=== PATIENT | male | born 1985 | race Caucasian/White ===

== ENCOUNTER 2024-09-06 06:06 | Emergency (ER) | payer BC, SELFPAY ==
[2024-09-06 06:12] VITALS: BP 137/77
[2024-09-06 06:15] VITALS: BP 102/60
[2024-09-06] MEDS: TORADOL 30 MG IM (06:19)
[2024-09-06 06:35] LABS: Hematocrit 43.3 % (39.0-52.0); Hemoglobin 14.3 g/dL (13.0-18.0); Mean Corpuscular Volume 84.9 fL (80.0-94.0); Platelet Count 244 10^3/uL (130-400); Red Cell Dist. Width 13.1 % (11.5-14.5); White Blood Cell Count 8.4 10^3/uL (4.8-10.8)
[2024-09-06 06:58] LABS: ALT (SGPT) 25 U/L (0-50); AST (SGOT) 23 U/L (17-59); Albumin 4.7 g/dl (3.5-5.0); Alkaline Phosphatase 54 U/L (38-126); Blood Urea Nitrogen 17 mg/dl (9-20); Calcium 9.2 mg/dl (8.4-10.2); Carbon Dioxide 28 mmol/L (22-30); Chloride 104 mmol/L (98-107); Glucose 127 mg/dl (70-99); Sodium 144 mmol/L (135-145); Total Bilirubin 0.6 mg/dl (0.2-1.3); Total Protein 7.6 g/dl (6.3-8.2); eGFR > 60.00
[2024-09-06 07:00] VITALS: BP 106/78
[2024-09-06 07:08] VITALS: BMI 26.6
--- NOTE | 2024-09-06 07:08 | ED.GENMED ---
History of Present Illness
General
Chief Complaint: Flank Pain
Time Seen by Provider: 09/06/24 06:58
History of Present Illness
History of Present Illness:
38-year-old male with no significant past medical history presenting to the ED with left flank pain. Patient notes his pain started this morning after waking up, does not radiate and is not associated with nausea and vomiting. Patient has a
history of nephrolithiasis (fourth episode) and feels pain is similar to his prior episodes. Denies frequency, urgency, burning sensation on urination. Notes dark urine. Denies chest pain, cough, shortness of breath.
Past History
Past History
ED Past Medical History: None
ED Past Surgical History: None
Review of Systems
Review of Systems
Constitutional: Reports no symptoms
EENT: Reports no symptoms
Respiratory: Reports no symptoms
Cardiac: Reports no symptoms
ABD/GI: Reports no symptoms
: Reports flank pain and dark urine
Musculoskeletal: Reports no symptoms
Skin: Reports no symptoms
Neurological: Reports no symptoms
Endocrine: Reports no symptoms
Hematologic/Lymphatic: Reports no symptoms
Psychiatric: Reports no symptoms
Phy Exam
Physical Exam
Physical Exam:
GENERAL: Alert, in no apparent distress
EYE: pupils equal and reactive
NECK: Supple, no significant adenopathy.
ENT: o/p clr, mmm.
CARDIAC: Regular rate and rhythm.
LUNGS: Clear breath sounds bilaterally, no acute respiratory distress, no wheezes/rales/rhonchi
ABDOMEN: Soft, without focal tenderness, no r/g, mild left cvat, no right cvat
NEUROLOGICAL: Alert and oriented, no focal neuro deficits
SKIN: Warm and dry, skin intact.
MUSCULOSKELETAL: No edema, well perfused.
PSYCH: Normal and appropriate interaction.
Course
Orders/Labs/Results
Orders:
Orders
09/06/24 06:08
Abdomen/Pelvis wo Contrast CT [CT Abd/pelvis Wo Iv Cont] Urgent
Comment:
Reason For Exam: FLANK PAIN
09/06/24 06:17
Ketorolac [Toradol] 30 mg .ROUTE .STK-MED ONE
09/06/24 06:18
Ketorolac [Toradol] 30 mg IM NOW STA
09/06/24 06:22
Complete Blood Count/No Diff Urgent
Comprehensive Metabolic Panel Urgent
09/06/24 07:08
Urinalysis Urgent
Date Specimen was Collected: 09/06/24
Time Specimen was Collected: 06:09
Abnormal Lab Results
09/06/24
06:22
Glucose 127 H mg/dl
(70-99)
09/06/24 06:22
09/06/24 06:22
Vital Signs
Initial and Last Documented VS:
Initial Vital Signs
Temp Pulse Resp BP Pulse Ox
97.9 F 66 22 137/77 100
09/06/24 06:12 09/06/24 06:12 09/06/24 06:12 09/06/24 06:12 09/06/24 06:12
Last Documented Vital Signs
Temp Pulse Resp BP Pulse Ox
97.9 F 74 21 102/60 98
09/06/24 06:12 09/06/24 06:41 09/06/24 06:41 09/06/24 06:15 09/06/24 06:41
MDM/Problems Addressed
Differential Diagnosis Includes:
Nephrolithiasis
UTI/pyelonephritis
MDM/Problems Addressed:
- CBC, CMP
- Toradol for pain control
- Urinalysis
- Abdomen Pelvis CT scan
*Critical Care Note
Total Time (30-74mins, 75-104mins- exclusive of procedures): Not Applicable
ED Attending Note
-
Portions of this chart may have been created with voice recognition software.� Occasional wrong word or��sound alike� substitutions may have occurred due to the inherent limitations of voice recognition software.
Discharge Plan
Departure
Prescriptions:
No Action
No Current Medications
0
Interventions
Interventions:
*Risk Screen - Suicide Last Done: 09/06/24 06:12
*General Assessment Last Done: 09/06/24 06:42
*Neglect/Abuse Screening Last Done: 09/06/24 06:12
ED- Fall Risk Assessment Last Done: 09/06/24 07:09
*ED COVID-19 Vaccine History Last Done: 09/06/24 06:42
XC-Rxocsx-Wqiltscibu Assessment Last Done: 09/06/24 07:09
ED-Male Genitourinary Assessment Last Done: 09/06/24 07:09
Discharge Date and Time
Print Language: KOREAN
[2024-09-06 07:18] LABS: Urine Albumin 1+ (Neg - Trace); Urine Bilirubin 1+ (Negative); Urine Character Slightly Cloudy (Clear); Urine Color Yellow; Urine Glucose Negative (Negative); Urine Ketone Trace (Negative); Urine Leukocyte Trace (Negative); Urine Nitrite Negative (Negative); Urine Occult Blood 4+ (Negative); Urine Urobilinogen Negative (Neg - 1+)
[2024-09-06 07:33] LABS: Urine Bacteria Moderate (Negative); Urine Red Blood Cell 70-80 /HPF (0-2)
[2024-09-06] MEDS: DILAUDID 0.5 MG IV (08:43)
[2024-09-06 08:47] VITALS: BP 124/74
== END 2024-09-06 11:00 | disposition home or self-care (01) ==
LOC: EMR 06:06
PROVIDERS: EMERGENCY PHYSICIAN Emergency Medicine
DX: N13.2 Hydronephrosis with renal and ureteral calculous obstruction (principal)
CPT/HCPCS: 96374; 96372; 99284; 74176; 80053; 81003; 81015; 85027